=== PATIENT | female | born 1950 | race Caucasian/White ===

== ENCOUNTER → 2016-12-27 | Outpatient (CLI) | payer OTHER | END | disposition home or self-care (01) | LOC: MA 10:00 → US 11:00 → MA 12:42 | PROC: BW4GZZZ Ultrasonography of Pelvic Region (ICD-10-PCS; principal; 2016-12-27) | PROC: BH02ZZZ Plain Radiography of Bilateral Breasts (ICD-10-PCS; 2016-12-27) | DX: Z12.31 Encounter for screening mammogram for malignant neoplasm of breast (principal); R14.0 Abdominal distension (gaseous) | CPT/HCPCS: G0202 ==